=== PATIENT | male | born 1945 | race Hispanic/Latino ===

== ENCOUNTER 2018-10-03 02:07 | Emergency (ER) | payer OTHER ==
[2018-10-03] MEDS ORDERED: DIPHENHYDRAMINE 50 MG/ML VIAL ONE (02:53)
[2018-10-03] MEDS ORDERED: FAMOTIDINE 20 MG/2 ML VIAL IV ONE (02:53)
[2018-10-03] MEDS ORDERED: METHYLPREDNISOLONE 125 MG INJ ONE (02:53)
--- NOTE | 2018-10-03 04:15 | EDPHYS ---
Physician Documentation [facility] Name: Yasir Jones Age: 73 yrs Sex: Male : 1945 Arrival Date: 10/03/2018 Time: 02:09 Bed 13 Private MD: ED Physician Leonel Garcia HPI: 10/03 02:40 This 73 yrs old Male presents to ER via Ambulatory with complaints of Allergic tw4 Reaction. 02:40 The patient presents with itching, swelling of the lips, swelling of the tongue. Onset: tw4 The symptoms/episode began/occurred 2 hour(s) ago. Associated signs and symptoms: The patient has no apparent associated signs or symptoms. Possible causes: The patient has no known obvious cause for the symptoms. At home the patient or guardian has treated the symptoms with nothing. Severity of symptoms: At their worst the symptoms were moderate in the emergency department the symptoms are unchanged. The patient has not experienced similar symptoms in the past. Historical: - Allergies: 02:26 unknown medication; bb - Home Meds: 02:26 None [Active]; bb - PMHx: 02:26 None; bb - PSHx: 02:26 None; bb - Immunization history:: Adult Immunizations up to date. - Social history:: Smoking status: Patient/guardian denies using tobacco, Patient uses alcohol. - Ebola Screening: : No symptoms or risks identified at this time. ROS: 02:40 Constitutional: Negative for fever, chills, and weight loss, Cardiovascular: Negative tw4 for chest pain, palpitations, and edema, Respiratory: Negative for shortness of breath, cough, wheezing, and pleuritic chest pain, Abdomen/GI: Negative for abdominal pain, nausea, vomiting, diarrhea, and constipation, Back: Negative for injury and pain, MS/Extremity: Negative for injury and deformity, Skin: Negative for injury, rash, and discoloration, Neuro: Negative for headache, weakness, numbness, tingling, and seizure. Exam: 02:40 Constitutional: This is a well developed, well nourished patient who is awake, alert, tw4 and in no acute distress. Head/Face: Normocephalic, atraumatic. Chest/axilla: Normal chest wall appearance and motion. Nontender with no deformity. No lesions are appreciated. Cardiovascular: Regular rate and rhythm with a normal S1 and S2. No gallops, murmurs, or rubs. Normal PMI, no JVD. No pulse deficits. Respiratory: Lungs have equal breath sounds bilaterally, clear to auscultation and percussion. No rales, rhonchi or wheezes noted. No increased work of breathing, no retractions or nasal flaring. Abdomen/GI: Soft, non-tender, with normal bowel sounds. No distension or tympany. No guarding or rebound. No evidence of tenderness throughout. Back: No spinal tenderness. No costovertebral tenderness. Full range of motion. 02:40 MS/ Extremity: Pulses equal, no cyanosis. Neurovascular intact. Full, normal range of motion. 02:40 ENT: Mouth: Tongue: is swollen. Vital Signs: 02:26 BP 116 / 68; Pulse 96; Resp 14 S; Temp 98(O); Pulse Ox 93% on R/A; Weight 93.89 kg (R); bb Height 5 ft. 5 in. (165.10 cm); Pain 0/10; 03:00 BP 109 / 86; Pulse 92; Resp 16; Pulse Ox 99% ; rr5 04:15 BP 124 / 84; Pulse 81; Resp 17; Pulse Ox 98% ; rr5 02:26 Body Mass Index 34.45 (93.89 kg, 165.10 cm) bb MDM: 02:20 Patient medically screened. tw4 02:40 Data reviewed: vital signs, nurses notes. tw4 Administered Medications: 02:50 Drug: Pepcid 20 mg Route: IVP; Site: right forearm; rr5 04:36 Follow up: Response: No adverse reaction rr5 02:52 Drug: Benadryl 25 mg Route: IVP; Site: right forearm; rr5 04:36 Follow up: Response: No adverse reaction rr5 02:55 Drug: SOLU-Medrol 125 mg Route: IVP; Site: right forearm; rr5 04:37 Follow up: Response: No adverse reaction rr5 Disposition: 10/03/18 04:15 Discharged to Home. Impression: ALLERGIC REACTION. - Condition is Stable. - Prescriptions for Medrol (Dony) 4 mg Oral Tablets, Dose Pack - take 1 tablet by ORAL route as directed - follow package instructions; 1 packet. Pepcid 20 mg Oral Tablet - take 1 tablet by ORAL route once daily; 20 tablet. - Medication Reconciliation Form, Thank You Letter, Antibiotic Education, Prescription Opioid Use form. - Follow up: Private Physician; When: Upon discharge from the Emergency Department; Reason: Recheck today's complaints, Continuance of care, Re-evaluation by your physician. - Problem is new. - Symptoms have improved. Signatures: Dotty Bhatti RN RN Leonel Baez MD MD tw4 Josue Burks RN RN rr5 Corrections: (The following items were deleted from the chart) 04:40 04:15 10/03/2018 04:15 Discharged to Home. Impression: ALLERGIC REACTION. Condition is rr5 Stable. Forms are Medication Reconciliation Form, Thank You Letter, Antibiotic Education, Prescription Opioid Use. Follow up: Private Physician; When: Upon discharge from the Emergency Department; Reason: Recheck today's complaints, Continuance of care, Re-evaluation by your physician. Problem is new. Symptoms have improved. tw4
--- NOTE | 2018-10-03 04:15 | ER ---
Nurse's Notes [facility] Name: Yasir Jones Age: 73 yrs Sex: Male : 1945 Arrival Date: 10/03/2018 Time: 02:09 Bed 13 Private MD: Diagnosis: ALLERGIC REACTION Presentation: 10/03 02:23 Presenting complaint: Patient states: he took some medication earlier tonight thinks it bb was some type of muscle relaxer and now is having an allergic reaction with a rash that is itchy and spreading all over also thinks tongue is swollen. Transition of care: patient was not received from another setting of care. Onset: The symptoms/episode began/occurred acutely. Anaphylaxis evaluation, angioedema. Onset of symptoms was October 03, 2018. Risk Assessment: Do you want to hurt yourself or someone else? Patient reports no desire to harm self or others. Initial Sepsis Screen: Does the patient meet any 2 criteria? No. Patient's initial sepsis screen is negative. Does the patient have a suspected source of infection? No. Patient's initial sepsis screen is negative. Care prior to arrival: None. 02:23 Method Of Arrival: Ambulatory bb 02:23 Acuity: ALEXIA 2 bb Historical: - Allergies: 02:26 unknown medication; bb - Home Meds: 02:26 None [Active]; bb - PMHx: 02:26 None; bb - PSHx: 02:26 None; bb - Immunization history:: Adult Immunizations up to date. - Social history:: Smoking status: Patient/guardian denies using tobacco, Patient uses alcohol. - Ebola Screening: : No symptoms or risks identified at this time. Screenin:00 Abuse screen: Denies threats or abuse. Denies injuries from another. Nutritional rr5 screening: No deficits noted. Tuberculosis screening: No symptoms or risk factors identified. Fall Risk IV access (20 points). Total King Fall Scale indicates No Risk (0-24 pts). Assessment: 02:25 General: Appears in no apparent distress. comfortable, Behavior is calm, cooperative, rr5 appropriate for age. Pain: Denies pain. Neuro: Level of Consciousness is awake, alert, obeys commands, Oriented to person, place, time, situation. Cardiovascular: Capillary refill < 3 seconds Patient's skin is warm and dry. Respiratory: Airway is patent Respiratory effort is even, unlabored, Respiratory pattern is regular, symmetrical, Breath sounds are clear. GI: Abdomen is round. : No signs and/or symptoms were reported regarding the genitourinary system. EENT: No signs and/or symptoms were reported regarding the EENT system. Derm: Skin is intact, Skin temperature is warm Reports itching. Musculoskeletal: Capillary refill < 3 seconds, Range of motion: intact in all extremities. 03:45 Reassessment: Patient appears in no apparent distress at this time. Patient and/or rr5 family updated on plan of care and expected duration. Pain level reassessed. no complaints made Patient states feeling better. Patient states symptoms have improved. 04:30 Reassessment: Patient appears in no apparent distress at this time. Patient and/or rr5 family updated on plan of care and expected duration. Pain level reassessed. discharge instruction given and explained without complaints made. Patient states feeling better. Patient states symptoms have improved. Vital Signs: 02:26 BP 116 / 68; Pulse 96; Resp 14 S; Temp 98(O); Pulse Ox 93% on R/A; Weight 93.89 kg (R); bb Height 5 ft. 5 in. (165.10 cm); Pain 0/10; 03:00 BP 109 / 86; Pulse 92; Resp 16; Pulse Ox 99% ; rr5 04:15 BP 124 / 84; Pulse 81; Resp 17; Pulse Ox 98% ; rr5 02:26 Body Mass Index 34.45 (93.89 kg, 165.10 cm) bb ED Course: 02:09 Patient arrived in ED. al2 02:20 Leonel Garcia MD is Attending Physician. tw4 02:24 Triage completed. bb 02:26 Arm band placed on Patient placed in an exam room, on a stretcher, on pulse oximetry. bb Family accompanied patient. 02:27 Patient has correct armband on for positive identification. Placed in gown. Call light rr5 in reach. Side rails up X2. Pulse ox on. NIBP on. 02:36 Josue Burks RN is Primary Nurse. rr5 02:40 Inserted saline lock: 20 gauge in right forearm, using aseptic technique. rr5 04:35 No provider procedures requiring assistance completed. IV discontinued, intact, rr5 bleeding controlled, No redness/swelling at site. Pressure dressing applied. Administered Medications: 02:50 Drug: Pepcid 20 mg Route: IVP; Site: right forearm; rr5 04:36 Follow up: Response: No adverse reaction rr5 02:52 Drug: Benadryl 25 mg Route: IVP; Site: right forearm; rr5 04:36 Follow up: Response: No adverse reaction rr5 02:55 Drug: SOLU-Medrol 125 mg Route: IVP; Site: right forearm; rr5 04:37 Follow up: Response: No adverse reaction rr5 Outcome: 04:15 Discharge ordered by . tw4 04:35 Discharged to home ambulatory. rr5 04:35 Condition: stable 04:35 Discharge instructions given to patient, Instructed on discharge instructions, follow up and referral plans. medication usage, Demonstrated understanding of instructions, follow-up care, medications, Prescriptions given X 2. 04:40 Patient left the ED. rr5 Signatures: Dotty Bhatti, RN RN Nelsy Wilde Terrence, MD MD tw4 Josue Burks RN RN rr5
[2018-10-03 04:57] VITALS: TEMP 98
[2018-10-03 05:00] VITALS: BP 124/84; O2SAT 98
== END 2018-10-03 04:40 | disposition home or self-care (01) ==
LOC: ER 02:07
DX: R60.9 Edema, unspecified (principal); T78.40XA Allergy, unspecified, initial encounter; X58.XXXA Exposure to other specified factors, initial encounter
CPT/HCPCS: 96374; 96375; 99284; J2930

== ENCOUNTER 2022-11-18 05:51 | Day surgery (SDC) | payer MEDICARE, OTHER ==
[2022-11-18] MEDS ORDERED: TROPICAMIDE 1% OPTH 3 ML BOT ONE (06:15)
[2022-11-18] MEDS ORDERED: PHENYLEPHRINE 2.5% OPTH 2 ML ONE (06:15)
[2022-11-18] MEDS ORDERED: CYCLOPENTOLATE 2% OPTH 2 ML ONE (06:16)
[2022-11-18] MEDS ORDERED: Ringers Lactate 1,000 ML IV ONE (06:16)
[2022-11-18] MEDS ORDERED: KETOROLAC OPTHALMIC 5 ML BOT ONE (06:16)
[2022-11-18] MEDS ORDERED: EPINEPHRINE/PF 1 MG/ML AMP ONE (06:54)
[2022-11-18] MEDS ORDERED: TOBRADEX 0.3-0.1% OPTH OINTMENT ONE (06:54)
[2022-11-18] MEDS ORDERED: BALANCED SALT IRRIG PLAIN 500 ML IRR ONE (06:54)
[2022-11-18] MEDS ORDERED: BSS OPTHALMIC SOL 15 ML OPTH ONE (06:54)
[2022-11-18] MEDS ORDERED: DUOVISC 1 KIT OPTH ONE (06:55)
[2022-11-18] MEDS ORDERED: POVIDONE-IODINE 5% EYE DROPS ONE (06:55)
[2022-11-18] MEDS ORDERED: FENTANYL CITR 100 MCG/2 ML ONE (07:08)
[2022-11-18] MEDS ORDERED: dexAMETHasone 4 MG/ML VIAL ONE (07:09)
[2022-11-18] MEDS ORDERED: LIDOCAINE 2% MPF 5 ML VIAL ONE (07:09)
[2022-11-18] MEDS ORDERED: ONDANSETRON 4 MG/2 ML VIAL ONE (07:09)
[2022-11-18] MEDS ORDERED: KETOROLAC 30 MG/ML INJ ONE (07:09)
[2022-11-18] MEDS ORDERED: propofoL 200 MG/20 ML VIAL IV ONE (07:09)
[2022-11-18] MEDS ORDERED: EPINEPHRINE 1 MG/ML VIAL ONE (07:19)
[2022-11-18] MEDS: MOXIFLOXACIN HCL 10 DROPS/ML **OR USE OPTH ONE ×3 (07:30→07:45)
[2022-11-18] MEDS ORDERED: GLYCOPYRROLATE 0.2 MG/ML SYR ONE (07:57)
[2022-11-18] MEDS ORDERED: ALBUTEROL INHALER 60 PUFF/8 GM IH ONE (08:17)
[2022-11-18] MEDS ORDERED: ACETAMINOPHEN 325 MG TABLET ONE (10:00)
[2022-11-18 11:00] VITALS: BP 138/85; TEMP 97; O2SAT 100
== END 2022-11-18 10:46 | disposition home or self-care (01) ==
LOC: OR 05:51
PROVIDERS: ATTEND Ophthalmology
PROC: 08N Eye, Release (ICD-10-PCS; 2022-11-18)
PROC: 08RJ3JZ Replacement of Right Lens with Synthetic Substitute, Percutaneous Approach (ICD-10-PCS; principal; 2022-11-18 07:30)
DX: H25.13 Age-related nuclear cataract, bilateral (principal)
CPT/HCPCS: 66984; 65772; J2704; J1100; J0171 ×2; J1885; J3010; J2001; J7120; J2405

== ENCOUNTER 2024-06-20 19:45 | Emergency (ER) | payer MEDICARE ==
--- OUTSIDE RECORDS SUMMARY | 2024-06-20 19:48 | XMS REPORT | Continuity of Care Document ---
Author Name Unknown Address [address] [facility] [place] [address] [facility] thconnect Address [address] [facility] [address] [place] [address] Care Team Providers Care Fiberglass Finisher Name Role Phone Ezequiel Casey Attending Clinician Unavailable Doctor Unassigned, [place] Attending Clinician U Eric Fregoso Admitting Clinician Unavailable Payers Payer Name Policy Type Policy Number Effective Date Expirati on Date Source [facility] (MEDICARE REPLACEMENT HMO) [id number] 2021 00:00:00 Problems Condition Name Condition Details Condition Category Status Onset Date Resolution Date Last Treatment Date Treating Clinician Comments Source Urinary incontinen ce Urinary incontinen ce Problem [facility] [id number] Pain in right knee Problem [facility] [id number] Primary osteoarthr itis of right knee Problem [facility] [id number] Primary osteoarthr itis of left knee Problem [facility] [id number] Arthritis of knee, right Problem [facility] [id number] BPH loc w urin obs/LUTS Problem [facility] [id number] Chronic prostatiti s Problem [facility] Arthritis of both knees Arthritis of both knees Problem [facility] [id number] Anejaculat ion Problem [facility] Allergies, Adverse Reactions, Alerts Allergy Name Allergy Type Status Severity Reaction(s) Onset Date Inactive Date Treating Clinician Comments Source ibuprofe n ibuprofe n Active Unknown [facility] Social History Social Habit Start Date Stop Date Quantity Comments Source Sex Assigned At [facility] History of Tobacco Use [facility] Smoking Status Start Date Stop Date Source Never Smoker [facility] Former smoker 2019-10-19 00:00:00 2019-10-19 00:00:00 [facility] Medications Ordered Medication Name Filled Medication Name Start Date Stop Date Current Medication? Ordering Clinician Indication Dosage Frequency Signature (SIG) Comments Components Source Kenalog (Triamcinol one) Kenalog (Triamcinol one) 04-26 00:00: 00 No 1mL [facility] Bupivicaine Boyds Bupivicaine Boyds 04-26 00:00: 00 No 4mL [facility] Kenalog (Triamcinol one) Kenalog (Triamcinol one) 04-26 00:00: 00 No 1mL [facility] Bupivicaine Boyds Bupivicaine Boyds 04-26 00:00: 00 No 4mL [facility] Kenalog (Triamcinol one) Kenalog (Triamcinol one) 04-26 00:00: 00 No 1mL [facility] Bupivicaine Boyds Bupivicaine Boyds 04-26 00:00: 00 No 4mL [facility] Kenalog (Triamcinol one) Kenalog (Triamcinol one) 8- 00:00: 00 No 1mL [facility] Bupivicaine Boyds Bupivicaine Boyds - 00:00: 00 No 4mL [facility] Kenalog (Triamcinol one) Kenalog (Triamcinol one) 8- 00:00: 00 No 1mL [facility] Bupivicaine Boyds Bupivicaine Boyds 3-0 8-08 00:00: 00 No 4mL [facility] Kenalog (Triamcinol one) Kenalog (Triamcinol one) 2022-0 8-08 00:00: 00 No 1mL [facility] Bupivicaine Boyds Bupivicaine Boyds 2022-0 8-08 00:00: 00 No 4mL [facility] Finasteride 5 MG Finasteride 5 MG 3-0 7-05 00:00: 00 No 1{table t} QD Finasterid e 5 MG Finasteride 5 MG Finasteride 5 MG 3-0 7-05 00:00: 00 No 1{table t} QD Finasterid e 5 MG Finasteride 5 MG Finasteride 5 MG 3-0 7-05 00:00: 00 No 1{table t} QD Finasterid e 5 MG Finasteride 5 MG Finasteride 5 MG 3-0 7-05 00:00: 00 No 1{table t} QD Finasterid e 5 MG Finasteride 5 MG Finasteride 5 MG 3-0 7-05 00:00: 00 No 1{table t} QD Finasterid e 5 MG Finasteride 5 MG Finasteride 5 MG 3-0 7-05 00:00: 00 No 1{table t} QD Finasterid e 5 MG Sulfamethox azole-Trime thoprim 800-160 MG Sulfamethox azole-Trime thoprim 800-160 MG 3-0 5-11 00:00: 00 No 1{table t} BID Sulfametho xazole-Tri methoprim 800-160 MG Flomax 0.4 MG Flomax 0.4 MG 2023-0 5-11 00:00: 00 No 1{capsu le} QD Flomax 0.4 MG Sulfamethox azole-Trime thoprim 800-160 MG Sulfamethox azole-Trime thoprim 800-160 MG 3-0 5-11 00:00: 00 No 1{table t} BID Sulfametho xazole-Tri methoprim 800-160 MG Flomax 0.4 MG Flomax 0.4 MG 3-0 5-11 00:00: 00 No 1{capsu le} QD Flomax 0.4 MG Sulfamethox azole-Trime thoprim 800-160 MG Sulfamethox azole-Trime thoprim 800-160 MG 01-27 00:00: 00 No 1{table t} BID Sulfametho xazole-Tri methoprim 800-160 MG methylPREDN ISolone (MEDROL, TREVOR,) 4 mg tablets 10-19 00:00: 00 Yes [id number] 84mg Take 21 tablets by mouth SEE-INSTRU CTIONS. follow package directions [facility] amitriptyli ne (ELAVIL) 10 mg tablet 05-24 07:15: 58 Yes 10mg Take 10 mg by mouth at bedtime. [facility] glipiZIDE (GLUCOTROL) 5 mg tablet 05-24 07:15: 58 Yes 5mg Take 5 mg by mouth daily. [facility] cyclobenzap rine (FLEXERIL) 10 mg tablet 05-24 07:15: 58 Yes 10mg Take 10 mg by mouth 3 (three) times daily. [facility] gabapentin (GRALISE) 300 mg Tb24 05-24 07:15: 58 Yes Take by mouth. [facility] pravastatin (PRAVACHOL) 40 mg tablet 05-24 07:15: 58 Yes 40mg Take 40 mg by mouth at bedtime. [facility] naproxen (NAPROSYN) 500 mg tablet 05-24 00:00: 00 Yes 500mg Take 1 Tab by mouth 2 (two) times daily with meals. [facility] acetaminoph en-codeine (TYLENOL #3) 300-30 mg tablet 05-24 00:00: 00 Yes 1{tbl} Take 1 Tab by mouth every 4 (four) hours as needed for Pain (scale 7-10). [facility] Tamsulosin HCl 0.4 MG Tamsulosin HCl 0.4 MG No 1{capsu le} QD Tamsulosin HCl 0.4 MG Tamsulosin HCl 0.4 MG Tamsulosin HCl 0.4 MG No Tamsulosin HCl 0.4 MG Tamsulosin HCl 0.4 MG Tamsulosin HCl 0.4 MG No 1{capsu le} QD Tamsulosin HCl 0.4 MG Tamsulosin HCl 0.4 MG Tamsulosin HCl 0.4 MG No 1{capsu le} QD Tamsulosin HCl 0.4 MG Vital Signs Vital Name Observation Time Observation Value Comments Van gonsalez height 2023-06-27 14:00:00 65 [in_i] [facility]mo n [facility] weight 2023-06-27 14:00:00 210 [lb_av] Comm [facility] temperature 2023-06-27 14:00:00 98.6 [degF] Com [facility] bmi 2023-06-27 14:00:00 34.94 kg/m2 Comm [facility] blood pressure systolic 2023-06-27 14:00:00 126 mm[Hg] [facility] blood pressure diastolic 2023-06-27 14:00:00 86 mm[Hg] [facility] height 2023-04-26 14:00:00 65 [in_i] Commo n [facility] weight 2023-04-26 14:00:00 210 [lb_av] Comm on [facility] temperature 2023-04-26 14:00:00 98.0 [degF] Com [facility] bmi 2023-04-26 14:00:00 34.94 kg/m2 Comm on [facility] blood pressure systolic 2023-04-26 14:00:00 132 mm[Hg] [facility] blood pressure diastolic 2023-04-26 14:00:00 84 mm[Hg] [facility] bmi 2023-03-23 17:15:00 34.61 kg/m2 Comm on [facility] oximetry 2023-03-23 17:15:00 92 % Com[facility] respiratory rate 2023-03-23 17:15:00 18 /min [facility] blood pressure systolic 2023-03-23 17:15:00 140 mm[Hg] [facility] blood pressure diastolic 2023-03-23 17:15:00 78 mm[Hg] [facility] height 2023-03-23 17:15:00 65 [in_i] Commo n [facility] weight 2023-03-23 17:15:00 208 [lb_av] Comm on [facility] temperature 2023-03-23 17:15:00 98.3 [degF] Com [facility] height 2023-01-27 09:30:00 65 [in_i] Commo n [facility] weight 2023-01-27 09:30:00 213.8 [lb_av] Co mmon [facility] temperature 2023-01-27 09:30:00 97.9 [degF] Com [facility] bmi 2023-01-27 09:30:00 35.57 kg/m2 Comm on [facility] oximetry 2023-01-27 09:30:00 99 % Commo [facility] respiratory rate 2023-01-27 09:30:00 18 /min [facility] blood pressure systolic 2023-01-27 09:30:00 140 mm[Hg] [facility] blood pressure diastolic 2023-01-27 09:30:00 68 mm[Hg] [facility] Procedures Procedure Date / Time Performed Performing [facility] n Source PVR 2023-01-27 00:00:00 [facility] REFERRAL- REQUEST/RESPONSE 2019-10-19 06:01:00 Doctor Unassigned, [place] [facility] Encounters Start Date/Time End Date/Time Encounter Type Admission Type Attending [facility] Care Department Encounter ID Source 2023-06-28 11:31:00 Outpatient Casey, Ezequiel [facility] [id number] [facility] 2023-04-26 15:06:00 Outpatient Casey, Ezequiel [facility] [id number] [facility] 2023-02-01 08:17:02 Outpatient Casey, Ezequiel [facility] [id number] [facility] 2023-01-27 09:14:03 Outpatient Casey, Ezequiel [facility] [id number] [facility] 2023-09-22 00:00:00 2023-09-22 00:00:00 OFFICE VISIT ESTAB PT LEVEL 3 [facility] [id number] [facility] 2023-06-27 00:00:00 2023-06-27 00:00:00 OFFICE VISIT ESTAB PT LEVEL 4 [facility] [id number] [facility] 2023-06-27 00:00:00 2023-06-27 00:00:00 (TEL) [facility] [id number] [facility] 2023-04-26 00:00:00 2023-04-26 00:00:00 OFFICE VISIT NEW PT LEVEL 4 [facility] [id number] [facility] 2023-03-23 00:00:00 2023-03-23 00:00:00 OFFICE VISIT ESTAB PT LEVEL 3 [facility] [id number] [facility] 2023-01-27 00:00:00 2023-01-27 00:00:00 OFFICE VISIT NEW PT LEVEL 3 [facility] ST[facility] [id number] [facility] 2022-09-19 00:00:00 2022-09-19 00:00:00 Outpatient DMG DMG [id number] [facility] 2022-09-19 00:00:00 2022-09-19 00:00:00 Outpatient DMG DMG [id number] [facility] 2022-07-06 00:00:00 2022-07-06 00:00:00 Outpatient DMG DMG [id number] [facility] 2021-05-07 11:00:00 2021-05-07 11:00:00 Outpatient DMG DMG [id number] [facility] 2019-10-19 00:00:00 2019-10-19 00:00:00 Orders Only Doctor Unassigned, [place] [facility] [id number] [facility]
[2024-06-20] MEDS ORDERED: HYDROCODONE/APAP 7.5/325 MG TAB ONE (20:36)
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
[2024-06-21 14:33] VITALS: BP 145/72
[2024-06-21 14:34] VITALS: TEMP 98.1; O2SAT 99
== END 2024-06-20 22:11 | disposition home or self-care (01) ==
LOC: ER 19:45
DX: S09.90XA Unspecified injury of head, initial encounter (principal); S19.9XXA Unspecified injury of neck, initial encounter; S39.92XA Unspecified injury of lower back, initial encounter; S29.9XXA Unspecified injury of thorax, initial encounter; V43.52XA Car driver injured in collision with other type car in traffic accident, initial encounter; W22.11XA Striking against or struck by driver side automobile airbag, initial encounter; Y93.89 Activity, other specified; Y92.410 Unspecified street and highway as the place of occurrence of the external cause
CPT/HCPCS: 70450; 71250; 72125; 74176; 99284